=== PATIENT | female | born 1960 | race Caucasian/White ===

== ENCOUNTER 2017-03-25 12:50 | Outpatient (CLI) ==
[2014-02-09 15:08] VITALS: BMI 21.9
--- NOTE | 2017-03-25 13:59 | DEXA ---
EXAM: Bone density HISTORY: Osteoporosis post menopause with calcium supplementation and previously taking Fosamax COMPARISON: DEXA at 06/22/2014 TECHNIQUE: Digital images of the thoracolumbar spine and hips were provided and calculation of bone density was obtained. FINDINGS: Digital images demonstrate no compression deformities of the thoracolumbar spine. DEXA scan of the lumbar spine is of good quality. The total BMD equals 0.92 grams per square centimeter. (Prior 0.986) T-score is - 1.7 and Z-score of - 0.5. DEXA of the hips was performed and of good quality. Total bone marrow density of 0.708 grams per square centimeter. (Prior 0.708) T score is - 2.4 and Z-score of - 1.5. IMPRESSION: Bone density of the hip and lumbar spine demonstrate osteopenia of the lumbar spine and hips by WHO criteria. Overall bone density has decreased in the lumbar spine and remains unchanged of the hips. FRAX calculation tool demonstrates 10-year major osteoporotic fracture risk of 11.3% and hip fracture risk of 2.8% T score greater than -1 is normal T score -1 to -2.5 is osteopenia T score less than - 2.5 is osteoporosis
--- NOTE | 2017-03-26 09:14 | MAMMO ---
EXAM: Bilateral digital screening mammogram (2-D and 3-D) History: Screening Comparison: Bilateral mammogram 09/21/2015 Findings: MLO and CC views of bilateral breasts demonstrate scattered fibroglandular breast parenchy ma. CAD was reviewed by the radiologist. Tomosynthesis was performed. There are no dominant masses , no suspicious microcalcifications and no architectural distortions Impression: Stable negative mammogram. Recommend followup routine screening mammography in 1 year. BIRADS 1
== END 2017-03-25 12:51 | disposition home or self-care (01) ==
LOC: RAD 12:50
PROVIDERS: ATTEND Internal Medicine
DX: Z12.31 Encounter for screening mammogram for malignant neoplasm of breast (principal); M81.0 Age-related osteoporosis without current pathological fracture
CPT/HCPCS: 77067

== ENCOUNTER 2022-11-19 18:21 | Observation (INO) ==
[2022-11-19 18:54] LABS: BASOPHILS # (AUTO) 0.1 K/uL (0-0.2); EOSINOPHILS # (AUTO) 0.2 K/ul (0.0-0.7); EOSINOPHILS % (AUTO) 4.7 % (0.0-7.0); HEMATOCRIT 40.6 % (37.0-47.0); HEMOGLOBIN 13.9 g/dl (12.0-16.0); IMMATURE GRANULOCYTE % (AUTO) 0.2 % (0.0-5.0); LYMPHOCYTES # (AUTO) 1.8 K/uL (0.60-3.4); LYMPHOCYTES % (AUTO) 35.4 (10.0-50.0); MEAN CORPUSCULAR HEMOGLOBIN 32.3 pg (27.0-31.0); MEAN CORPUSCULAR HGB CONC 34.2 (31.8-35.4); MEAN CORPUSCULAR VOLUME 94.4 fl (81.0-99.0); MONOCYTES # (AUTO) 0.4 K/uL (0.4-2.0); MONOCYTES % (AUTO) 7.2 (0-10); NEUTROPHILS # (AUTO) 2.7 K/ul (2.0-6.9); NEUTROPHILS % (AUTO) 51.5 % (42.2-75.2); PLATELET COUNT 246 10^3/uL (140-440); RDW COEFFICIENT OF VARIATION 11.9 % (11.6-14.8); WHITE BLOOD COUNT 5.14 K/ul (4.6-10.2)
--- NOTE | 2022-11-19 18:57 | DI ---
EXAM: FRONTAL VIEW OF THE CHEST. HISTORY: Chest pain. COMPARISON: None. FINDINGS: Normal heart size. Hyperexpansion of the lungs. No acute airspace consolidation. Prominent skin fold versus trace right apical pneumothorax. No pleural effusion. Mild dextroconvex thoracic curvature. IMPRESSION: Prominent skin fold versus trace right apical pneumothorax. Recommend short interval follow-up chest radiograph. Hyperexpansion of the lungs suggests obstructive pulmonary disease.
[2022-11-19 19:05] LABS: ALANINE AMINOTRANSFERASE 18.2 U/L (0-35); ALBUMIN 4.38 g/dL (3.5-5.0); ALKALINE PHOSPHATASE 72.8 U/L (53-141); ASPARTATE AMINO TRANSFERASE 25.6 U/L (14-36); BILIRUBIN,TOTAL 0.28 mg/dL (0.2-1.3); BLOOD UREA NITROGEN 10.7 mg/dL (7-17); CALCIUM 9.25 mg/dL (8.4-10.2); CARBON DIOXIDE 27.1 mmol/L (22-30.0); CHLORIDE 105.7 mmol/L (98-107); CREATINE KINASE 64.1 U/L (30-135); CREATININE 0.65 mg/dL (0.60-1.30); GLUCOSE 122.6 mg/dL (74-106); POTASSIUM 3.89 mmol/L (3.5-5.1); SODIUM 139.7 mmol/L (134.5-145); TOTAL PROTEIN 7.23 g/dL (6.3-8.2)
[2022-11-19 19:17] LABS: TROPONIN I < 0.012 ng/ml (0.0000-0.120)
--- NOTE | 2022-11-19 19:32 | ED.PDOC ---
General ED Provider: Dr. MADELINE VASQUES Chief Complaint: Chest Pain Stated Complaint: Patient is a 62-year-old female who comes into the ER by private vehicle with complaints of intermittent chest palpitations and chest pain. She described the chest pain as heaviness in her chest that has been off-and-on for 4 days. She states that she gets to feeling hot with associated shortness of breath and feels drained and tired. She has a history of hyperlipidemia but she quit taking her cholesterol medicine before the pandemic and has not followed up with her PCP since that time. Time Seen by Provider: 11/19/22 18:33 Mode of Arrival: Walk-In Information Source: Patient Exam Limitations: No limitations Primary Care Provider: CHARLOTTE BEAUCHAMP MD Nursing and Triage Documentation Reviewed and Agree: Yes Cardiovascular Complaint Exam Palpitations Complaint/Exam Onset/Duration: 4 days ago Symptoms Are: Resolved Timing: Intermittent Initial Severity: Severe Current Severity: Mild Character: Reports Fast, Irregular and Pounding Aggravating: Reports None (But also states that she has been going through a lot of anxiety since her son got into a wreck) Alleviating: Reports None (Spontaneous resolution) Associated Signs and Symptoms: Reports Lightheadedness, Chest pain (heaviness), Shortness of breath and Diaphoresis Related Surgical History: Reports None Cardiac Risk Factors: Reports Elevated lipids and Family history Pulmonary Embolism Risk Factors: Reports None Atrial Fibrillation Risk Factors: Reports None Thyroid Exam: Normal Differential Diagnoses: CAD, Myocarditis, Pericarditis, Paroxysmal SVT, VT and Other (Atrial Fibrillation ) Quality Indicators for AMI: EKG in 10min. Quality Indicators for Cardiac Chest Pain: EKG in 10min. Quality Indicator For Non-Traumatic Chest Pain/Syncope: EKG Performed Review of Systems Review Of Systems Constitutional: Reports No symptoms Respiratory: Reports Shortness of Breath Cardiac: Reports Chest pain and Palpitations Neurological: Reports Anxiety All Other Systems: Reviewed and Negative [facility] Family History FATHER Pacemaker Diabetes CAD (coronary artery disease) Myocardial infarct Mother Hyperthyroidism Hypothyroidism BROTHER No pertinent past medical history SISTER No pertinent past medical history Social History (Updated 11/20/22 @ 00:49 by FRANCY VERA RN) Smoking and tobacco status: Never smoker Alcohol intake: never Substance use type: does not use Marital status: M Lives independently: Yes History of recent travel: No Surgical History History of appendectomy Z90.49 - Acquired absence of other specified parts of digestive tract (ICD- 10) Hx of cholecystectomy Z90.49 - Acquired absence of other specified parts of digestive tract (ICD- 10) Hx of tonsillectomy Z90.89 - Acquired absence of other organs (ICD-10) Hx of tubal ligation Z98.51 - Tubal ligation status (ICD-10) Physical Exam Physical Exam Appearance: Reports Ill-appearing Ill-appearing: Mild Pain Distress: None Eyes: Reports PAULINO, EOMI and Conjunctiva clear ENT: Reports Nose normal and Oropharynx normal Neck: Supple Respiratory: Reports Airway patent, Breath sounds clear and Breath sounds equal Cardiovascular: Reports RRR, Pulses normal, No rub and No murmur GI/: Reports Soft and Nontender Musculoskeletal: Reports Normal strength, ROM intact and No edema Skin: Reports Warm, Dry and Normal color Neurological: Reports Motor intact, Alert and Oriented Psychiatric: Reports Anxious Interpretation EKG Interpretation EKG Interpretation By: ED Physician Time of EKG #1: 18:56 Rate: Normal Rhythm: Sinus (With marked sinus arrhythmia) Ectopy: PACs [place]: NL ST Segment: Normal Interpretation: Possible old septal infarct noted with Q waves in V1 and V2. No acute ST e EKG Interpretation By: ED Physician Time of EKG #2: 18:56 Rate: Tachy Rhythm: Sinus Ectopy: PACs [place]: NL EKG Interpretation: Old septal infarct appreciated with V1 V2 Q waves. No acute ST elevation n Radiology Interpretation Radiology Interpretation By: Radiologist Radiology Results: No acute changes (Prominent skin fold versus trace right apical pneumothorax. Recommend short interval follow-up chest radiograph.) Re-Evaluation Re-Evaluation Time of Re-Evaluation: 21:20 Status: Improved Vital Signs Stable: Yes Pain Level: No pain Physician Notification Case Discussed Physician Notified: Dr Beauchamp Time of Notification: 21:15 (ask Hospitalist to admit and consult him if needed. But get an Echo for the morning. ) Physician Notified: Jose Shultz Time of Notification: 21:19 (accepted to admit for observation ) Critical Care Note Critical Care Note Total Critical Care Time (mins): 0 Comments: Patient's pain has subsided. Palpitations become very infrequent and extremely short. Patient is agreeable to admission for observation to the hospital to monitor her heart rate and follow cardiac enzymes. Course Course 11/19/22 17:30 11/19/22 17:30 Orders, Labs, Meds: Lab Review 11/19/22 11/19/22 11/19/22 17:30 18:33 21:37 WBC 5.14 RBC 4.30 Hgb 13.9 Hct 40.6 MCV 94.4 MCH 32.3 H MCHC 34.2 RDW Coeff of Jesús 11.9 Plt Count 246 Immature Gran % (Auto) 0.2 Neut % (Auto) 51.5 Lymph % (Auto) 35.4 [place] % (Auto) 7.2 Eos % (Auto) 4.7 Baso % (Auto) 1.0 Neut # (Auto) 2.7 Lymph # (Auto) 1.8 [place] # (Auto) 0.4 Eos # (Auto) 0.2 Baso # (Auto) 0.1 Immature Gran # (Auto) 0.0 Sodium 139.7 Potassium 3.89 Chloride 105.7 Carbon Dioxide 27.1 Anion Gap 10.79 BUN 10.7 Creatinine 0.65 Estimated GFR (MDRD) 93.00 BUN/Creatinine Ratio 16.46 Glucose 122.6 H Calcium 9.25 Magnesium 2.10 Total Bilirubin 0.28 AST 25.6 ALT 18.2 Alkaline Phosphatase 72.8 Total Creatine Kinase 64.1 Troponin I < 0.012 < 0.012 Total Protein 7.23 Albumin 4.38 Globulin 2.85 Albumin/Globulin Ratio 1.53 TSH 4.070 Free T4 1.08 D-Dimer 189.54 Orders Category Date Time Status ADMIT OBSERVATION [PLACE PATIENT OBSERVATION] .TO ADMISSION 11/19/22 21:16 Active MEDSURG (MONITORED BED) ECHOCARDIOGRAM 2D-M MODE Routine CARDIO 11/19/22 21:20 Ordered EKG-(ED ONLY) Stat CARDIO 11/19/22 18:33 Completed EKG-(ED ONLY) Stat CARDIO 11/19/22 19:22 Completed EKG-(IP & OP ONLY) DAILY CARDIO 11/20/22 06:00 Ordered STRESS TEST Routine CARDIO 11/19/22 21:28 Ordered ACTIVITY .Up ad Regine CARE 11/19/22 21:20 Active INTAKE & OUTPUT Q8HR CARE 11/19/22 21:20 Active NPO REMINDER: LAB TEST ONCE CARE 11/19/22 21:22 Active TELEMETRY MONITORING TELE CARE 11/19/22 21:18 Active VITAL SIGNS Q4HR CARE 11/19/22 21:20 Active CARDIAC DIET DIETARY 11/20/22 Breakfast Ordered ED IV/MEDIPORT/POWERPORT .ONCE EMERGENCY 11/19/22 18:33 Active CBC W/ AUTO DIFF DAILY@0600 LAB 11/20/22 06:00 Ordered CBC W/ AUTO DIFF DAILY@0600 LAB 11/21/22 06:00 Ordered CBC W/ AUTO DIFF Stat LAB 11/19/22 17:30 Completed COMPREHENSIVE METABOLIC PANEL DAILY@0600 LAB 11/20/22 06:00 Ordered COMPREHENSIVE METABOLIC PANEL DAILY@0600 LAB 11/21/22 06:00 Ordered COMPREHENSIVE METABOLIC PANEL Stat LAB 11/19/22 17:30 Completed CREATINE KINASE Stat LAB 11/19/22 17:30 Completed D-DIMER Stat LAB 11/19/22 18:33 Completed FREE T4 (FREE THYROXINE) Stat LAB 11/19/22 18:33 Completed HEMOGLOBIN A1C Routine LAB 11/20/22 06:00 Ordered LIPID PANEL Routine LAB 11/20/22 06:00 Ordered MAGNESIUM Stat LAB 11/19/22 18:33 Completed TROPONIN I Stat LAB 11/19/22 17:30 Completed TROPONIN I Timed LAB 11/19/22 21:37 Completed TROPONIN I Timed LAB 11/20/22 05:30 Ordered TSH [THYROID STIMULATING HORMONE] Stat LAB 11/19/22 18:33 Completed 0.9 % Sodium Chloride [Saline Flush] Meds 11/19/22 18:33 Active 1 syr IVF PRN PRN Acetaminophen [Tylenol] Meds 11/19/22 21:20 Active 650 mg PO Q4H PRN CHEST, 1V AP ONLY Stat RADS 11/19/22 18:33 Completed Medications Generic Name Dose Route Start Last Admin Trade Name Freq PRN Reason Stop Dose Admin Acetaminophen 650 mg 11/19/22 21:20 Acetaminophen 325 Mg Tablet PO Q4H PRN Mild Pain Sodium Chloride 1 syr 11/19/22 18:33 0.9% Sodium Chloride 10 Ml Disp.Syrin IVF PRN PRN To flush IV Vital Signs: Temp Pulse Resp BP Pulse Ox 11/19/22 18:26 97.4 F L 66 20 128/57 L 100 SHEILA Risk Score SHEILA Risk Score: Risk Score Odds of by 30D 0 0.1 (0.1-0.2) 1 0.3 (0.2-0.3) 2 0.4 (0.3-0.5) 3 0.7 (0.6-0.9) 4 1.2 (1.0-1.5) 5 2.2 (1.9-2.6) 6 3.0 (2.5-3.6) 7 4.8 (3.8-6.1) Discharge Plan Discharge Patient Disposition: PLACED OBSERVATION Discharge Problem: Chest pain, Palpitation Did you review [place] [employer]AN for ALL controlled substances?: Not Applicable ED Provider: MADELINE VASQUES Condition: Stable Physician Progress Note: []
[2022-11-19] MEDS ORDERED: TYLENOL PO PRN (21:20)
[2022-11-20 00:42] VITALS: BMI 20.5
[2022-11-20 05:27] LABS: BASOPHILS # (AUTO) 0.1 K/uL (0-0.2); BASOPHILS % (AUTO) 1.4 % (0.0-3.0); EOSINOPHILS # (AUTO) 0.2 K/ul (0.0-0.7); EOSINOPHILS % (AUTO) 4.3 % (0.0-7.0); HEMATOCRIT 41.7 % (37.0-47.0); HEMOGLOBIN 13.9 g/dl (12.0-16.0); LYMPHOCYTES # (AUTO) 1.5 K/uL (0.60-3.4); LYMPHOCYTES % (AUTO) 34.5 (10.0-50.0); MEAN CORPUSCULAR HGB CONC 33.3 (31.8-35.4); MEAN CORPUSCULAR VOLUME 95.9 fl (81.0-99.0); MONOCYTES # (AUTO) 0.3 K/uL (0.4-2.0); MONOCYTES % (AUTO) 6.2 (0-10); NEUTROPHILS # (AUTO) 2.4 K/ul (2.0-6.9); NEUTROPHILS % (AUTO) 53.6 % (42.2-75.2); PLATELET COUNT 229 10^3/uL (140-440); RDW COEFFICIENT OF VARIATION 11.7 % (11.6-14.8); RED BLOOD COUNT 4.35 10^6/ul (4.20-5.40); WHITE BLOOD COUNT 4.38 K/ul (4.6-10.2)
[2022-11-20 05:46] LABS: ALANINE AMINOTRANSFERASE 18.1 U/L (0-35); ALBUMIN 4.13 g/dL (3.5-5.0); ALKALINE PHOSPHATASE 65.9 U/L (53-141); ASPARTATE AMINO TRANSFERASE 25.3 U/L (14-36); BILIRUBIN,TOTAL 0.55 mg/dL (0.2-1.3); BLOOD UREA NITROGEN 9.2 mg/dL (7-17); CALCIUM 9.14 mg/dL (8.4-10.2); CARBON DIOXIDE 33.4 mmol/L (22-30.0); CHLORIDE 103.9 mmol/L (98-107); CHOLESTEROL 219.1 mg/dL (0-200); CREATININE 0.6 mg/dL (0.60-1.30); GLUCOSE 100.6 mg/dL (74-106); HDL CHOLESTEROL 80.2 mg/dL (35-80); POTASSIUM 4.62 mmol/L (3.5-5.1); SODIUM 139.6 mmol/L (134.5-145); TOTAL PROTEIN 6.8 g/dL (6.3-8.2)
--- NOTE | 2022-11-20 09:42 | DI ---
EXAM: CHEST RADIOGRAPH TECHNIQUE: Two views. Frontal and lateral. HISTORY: Clinical concern regarding a right pneumothorax. COMPARISON: Chest x-ray dated 11/19/2022 which demonstrated a possible small right apical pneumothora x. FINDINGS: The lungs are clear. The heart size is normal. There is no pleural effusion. There is no pneumothorax. Previously visualized linear density at the right apex was likely due to a skin fold. IMPRESSION: 1. Normal chest radiographs. 2. No pneumothorax.
--- NOTE | 2022-11-20 09:46 | PCM.SS ---
Provider Provider: STEPH[facility] MENDEZ PA-C, [facility] Date Admission Date: 11/19/22 Discharge Date Discharge Date: 11/20/22 Primary Care Physician Primary Care Physician: CHARLOTTE WEBB MD Chief Complaint Reason For Visit: CHEST PAIN,PALPITATIONS History of Present Illness History of Present Illness: Admitted 11/19/22 21:53, this 62 year old /WHITE/F with pmhx of hyperlipidemia who presented to ER for chest discomfort and palpitations for last few days. She states it started while she was cleaning a shower. But she's also had episodes while at rest. They come and go. She feels palpitations like her "heart is beating out of her chest." She has associated SOB during these episodes. Denies n/v, diaphoresis. No hx of cardiac disease. In ER she had a normal work up except showing some transient tachycardia on telemetry and ekg. Her CXR also mentioned possible skin fold vs trace pneumothorax. Pt was 100% on RA. Repeat CXR this morning normal. Trops negative. EKG this morning showing sinus shelia. Pt does not smoke. Her father had MIs in his 70s-80s. She denies chest discomfort or palpitations on evaluation this morning. [facility] Surgical History History of appendectomy Z90.49 - Acquired absence of other specified parts of digestive tract (ICD- 10) Hx of cholecystectomy Z90.49 - Acquired absence of other specified parts of digestive tract (ICD- 10) Hx of tonsillectomy Z90.89 - Acquired absence of other organs (ICD-10) Hx of tubal ligation Z98.51 - Tubal ligation status (ICD-10) Family History FATHER Pacemaker Diabetes CAD (coronary artery disease) Myocardial infarct Mother Hyperthyroidism Hypothyroidism BROTHER No pertinent past medical history SISTER No pertinent past medical history Social History Smoking and tobacco status: Never smoker Alcohol intake: never Substance use type: does not use Marital status: M Lives independently: Yes History of recent travel: No Medications Mecications: Medications at Discharge (Home Meds & RX) 1 [No Reported Medications] 11/19/22 Allergies Allergies Allergy/AdvReac Type Severity Reaction Status Date / Time sulfamethoxazole AdvReac Rash Verified 11/19/22 18:32 [From Bactrim] trimethoprim [From Bactrim] AdvReac Rash Verified 11/19/22 18:32 Review of Systems Constitutional: Denies Fever, Weakness or Sweats Head: Denies Normocephalic or Atraumatic Eyes: Denies Vision Changes Throat: Denies Sore Throat or Difficulty Swallowing Cardiovascular: Reports Chest pain and Irregular Heartbeat; Denies Edema Respiratory: Reports Shortness of air; Denies Cough Gastrointestinal: Denies Nausea, Vomiting, Diarrhea or Abdominal pain Genitourinary: Denies Dysuria or Frequency Dermatologic: Denies Rashes Neurological: Denies Headache, Dizziness, Syncope or Seizure Physical Examination Appearance: Positive Well-appearing, Well-nourished, No Apparent Distress and Alert and Oriented x3 Head: Positive Normocephalic and Atraumatic Neck: Positive Supple Heart: Positive RRR and No Murmurs Respiratory: Positive Airway patent and Breath Sounds Clear, Bilaterally; Negative Crackles, Rhonchi, Wheezes or Retractions GI/: Positive Soft, Nontender, Bowel sounds normal and No Distention Extremities: Negative Edema Neurological: Positive Cranial nerves intact, Alert and Oriented Psychiatric: Positive Normal Judgement, Normal Insight, Affect Appropriate and Mood Appropriate Vital Signs (Last 4 Hours) Vital Signs Last 4 Hours: Vital Signs: Last 4 Hours 11/20/22 07:00 11/20/22 08:00 Pulse Rate [Right Radial] 60 Respiratory Rate 14 Oxygen Delivery Method Room Air Telemetry Type Remote Telemetry Telemetry Monitoring Continues Telemetry Heart Rate 81 EKG OH Interval 0.1 L EKG QRS Interval 0.04 L Telemetry Strip Reading SR Labs This Visit Labs This Visit: Labs This Visit 11/19/22 11/19/22 11/19/22 17:30 18:33 21:37 WBC 5.14 RBC 4.30 Hgb 13.9 Hct 40.6 MCV 94.4 MCH 32.3 H MCHC 34.2 RDW Coeff of Jesús 11.9 Plt Count 246 Immature Gran % (Auto) 0.2 Neut % (Auto) 51.5 Lymph % (Auto) 35.4 [place] % (Auto) 7.2 Eos % (Auto) 4.7 Baso % (Auto) 1.0 Neut # (Auto) 2.7 Lymph # (Auto) 1.8 [place] # (Auto) 0.4 Eos # (Auto) 0.2 Baso # (Auto) 0.1 Immature Gran # (Auto) 0.0 Sodium 139.7 Potassium 3.89 Chloride 105.7 Carbon Dioxide 27.1 Anion Gap 10.79 BUN 10.7 Creatinine 0.65 Estimated GFR (MDRD) 93.00 BUN/Creatinine Ratio 16.46 Glucose 122.6 H Hemoglobin A1c Calcium 9.25 Magnesium 2.10 Total Bilirubin 0.28 AST 25.6 ALT 18.2 Alkaline Phosphatase 72.8 Total Creatine Kinase 64.1 Troponin I < 0.012 < 0.012 Total Protein 7.23 Albumin 4.38 Globulin 2.85 Albumin/Globulin Ratio 1.53 Triglycerides Cholesterol LDL Cholesterol, Calc VLDL Cholesterol HDL Cholesterol Cholesterol/HDL Ratio TSH 4.070 Free T4 1.08 D-Dimer 189.54 11/20/22 11/20/22 05:05 05:10 WBC 4.38 L RBC 4.35 Hgb 13.9 Hct 41.7 MCV 95.9 MCH 32.0 H MCHC 33.3 RDW Coeff of Jesús 11.7 Plt Count 229 Immature Gran % (Auto) 0.0 Neut % (Auto) 53.6 Lymph % (Auto) 34.5 [place] % (Auto) 6.2 Eos % (Auto) 4.3 Baso % (Auto) 1.4 Neut # (Auto) 2.4 Lymph # (Auto) 1.5 [place] # (Auto) 0.3 L Eos # (Auto) 0.2 Baso # (Auto) 0.1 Immature Gran # (Auto) 0.0 Sodium 139.6 Potassium 4.62 Chloride 103.9 Carbon Dioxide 33.4 H Anion Gap 6.92 BUN 9.2 Creatinine 0.60 Estimated GFR (MDRD) 102.00 BUN/Creatinine Ratio 15.33 Glucose 100.6 Hemoglobin A1c 5.18 Calcium 9.14 Magnesium Total Bilirubin 0.55 AST 25.3 ALT 18.1 Alkaline Phosphatase 65.9 Total Creatine Kinase Troponin I < 0.012 Total Protein 6.80 Albumin 4.13 Globulin 2.67 Albumin/Globulin Ratio 1.54 Triglycerides 75.0 Cholesterol 219.1 H LDL Cholesterol, Calc 124 VLDL Cholesterol 15 HDL Cholesterol 80.2 H Cholesterol/HDL Ratio 2.7 L TSH Free T4 D-Dimer Imaging Imaging: EXAM: FRONTAL VIEW OF THE CHEST. HISTORY: Chest pain. COMPARISON: None. FINDINGS: Normal heart size. Hyperexpansion of the lungs. No acute airspace consolidation. Prominent skin fold versus trace right apical pneumothorax. No pleural effusion. Mild dextroconvex thoracic curvature. IMPRESSION: Prominent skin fold versus trace right apical pneumothorax. Recommend short interval follow-up chest radiograph. Hyperexpansion of the lungs suggests obstructive pulmonary disease. EXAM: CHEST RADIOGRAPH TECHNIQUE: Two views. Frontal and lateral. HISTORY: Clinical concern regarding a right pneumothorax. COMPARISON: Chest x-ray dated 11/19/2022 which demonstrated a possible small right apical pneumothorax. FINDINGS: The lungs are clear. The heart size is normal. There is no pleural effusion. There is no pneumothorax. Previously visualized linear density at the right apex was likely due to a skin fold. IMPRESSION: 1. Normal chest radiographs. 2. No pneumothorax. Echo and stress echo final reports pending Review Review Statement: I have independently reviewed and interpreted the labs/EKGs/imaging that were ordered by the ER provider. I have reviewed all outside records that are available currently in our EMR including imaging/notes/labs from previous visits. Plan Additional Plannin. Chest discomfort with palpitations - EKGs and tele showing short runs of tachycardia that spontaneously return to NSR. Echo and stress echo ordered. Trop neg. Electrolytes normal. 2. Hyperlipidemia - Hasn't taken anything in a few years. Total cholesterol very mildly elevated, but HDL elevated. Case discussed with ED Physician, Dr. Israel. Advanced Care Planning: FULL CODE 3 minutes spent discussing advance care planning. Admit to: Obs Discussed Plan of Care with Dr. Brayan Webb. Patient underwent echo and stress echo on treadmill with Dr. Yasmani Webb. He reports that her EF is 51%. No valvular issues. Systolic and diastolic function is normal. During her stress echo she did go into paroxysmal atrial tachycardia but then returned to normal sinus rhythm at rest. He recommends a 48-hour Holter so he can review it next week and send to EP. She will follow-up with him on Friday of next week at 11 AM. He recommends starting her on Coreg lowest dose. Advised her to monitor her blood pressure as she is chronically low anyway. She will monitor it at home and call Dr. Webb's office if she cannot tolerate it. Discharge diagnosis: 1. Paroxysmal atrial tachycardia, exercise induced 2. Hyperlipidemia, chronic, stable Review With Patient Reviewed with Patient and Family: Patient and family have been counseled on condition and care plan and have no immediate questions. I have personally discussed and reviewed the patient's visit/current labs/imaging/decision making with Dr. Brayan Webb, my supervising attending. Total number of minutes spent with patient [85] min. More than 50% of the time spent with this patient was devoted to counseling and coordination of care. Time of Admission:11/19/22 21:53 Time of Discharge: 11/20/22 16:00 Discharge Plan Discharge Discharge Orders: Discharge Patient (ONCE); Ordered 11/20/22 Ordered By: STEPHANY MENDEZ Activity Restrictions/Additional Instructions: Dx: Atrial tachycardia Diet: Heart healthy Activity: As tolerated F/u with Dr. Webb 11/27 at 11:00 AM Patient Disposition: HOME SELF-CARE Prescriptions: New carvedilol [Coreg] 3.125 mg tablet 3.125 mg PO BID Qty: 30 0RF Rx Instructions: must administer with a meal/food, monitor BP Did you review [place] [employer]ER for ALL controlled substances?: Not Applicable Discussed opioids are addictive and Narcan is available by prescription or from pharmacy.: No Condition: Stable
[2022-11-20 14:37] VITALS: BP 99/56; PULSE 64; RESP 15; TEMP 96.3
--- NOTE | 2022-11-20 15:47 | STRESSECHO ---
Date of Test: 11/20/2022 Ordering Physician: DR. CHARLOTTE WEBB Occupation:HOUSEKEEPING Reason for Exam: SOB, CHEST PAIN Smoking History: NONE Height: 62" Weight: 108 LBS Current Medications: NO PRESCRIPTION MEDICATIONS Resting EKG: SINUS RHYTHM/ NO ACUTE CHANGES/ PAC Target Heart Rate: 135/159 S-T SEGMENT STAGE MPH/GRADE HEART RATE BPM BLOOD PRESSURE MMHG RHYTHM +/- ELEVATION DEPRESSION SYMPTOMS AT REST 59 BPM 102/58 MMHG SR X NONE 1 1.7/10% 134 BPM 122/60 MMHG PAT X NONE 2 2.5/12% 3 3.4/14% 4 4.2/16% 5 5.0/18% Immediately After PATS X TARGET HR MET Minutes Post Exercise 3:00 90 BPM 118/60 MMHG SR X NONE Minutes Post Exercise 6:00 65 BPM 110/58 MMHG SR X NONE DURATION OF EXERCISE: 4:17 MAXIMUM HEART RATE REACHED: 150 BPM REASON FOR TERMINATION: TARGET HR MET 96% OXYGEN SATURATION WITH EXERCISE METS 7.0 INTERPRETATION: 1. NO EVIDENCE OF ISCHEMIA BY ST-T WAVE 2. NO CHEST PAIN OR DISCOMFORT 3. PAT NOTED AFTER COUPLE OF MINUTES OF EXERCISE-PAROXYSMAL IN THE BEGINNING AND LATER ON CONSTANT 4. POST EXERCISE 2 MINUTES LATER SINUS RHYTHM WITH PAC'S AND PAT'S 5. BLOOD PRESSURE RESPONSE --NORMAL 6. MILDLY HYPOKINETIC SEPTUM AT REST --LEFT VENTRICLE CONTRACTILITY NORMAL POST EXERCISE MTDD
--- NOTE | 2022-11-23 10:02 | ECHOSTRESS ---
Date of Exam: 11/20/2022 Ordering Physician: DR. CHARLOTTE WEBB Reason for Echo: CHEST PAIN, SOB, HYPERLIPIDEMIA, STRESS TEST--NO ISCHEMIA M-Mode Normal Adult Results LV Dimensions Normal Adult Results AoV Opening excursions >1.6 LVEDD-base- 3.5-5.8 Ao root dimensions 2.0-3.7 LVESD-base- 3.1-4.6 L. Atrium dimensions 1.9-3.8 Post. Wall thickness 0.8-1.1 IV septum (thickness) 0.7-1.2 Post. Wall excursion 0.72-1.3 Septal motion Systolic motion R. Ventricular cavity 1.5-2.0 LVEF 60% Paradoxical septal wall motion 2-D: MILDLY HYPOKINETIC SEPTAL WALL AT REST AND WITH IMPROVED LEFT VENTRICLE CONTRACTILITY AFTER EXERCISE M-MODE: MV: AV: TV: PV: CHAMBER SIZE: WALL MOTION: MILDLY HYPOKINETIC SEPTAL WALL AT REST AND WITH IMPROVED LEFT VENTRICLE CONTRACTILITY AFTER EXERCISE PERICARDIUM: INTERPRETATION: 1. MILDLY HYPOKINETIC SEPTAL WALL AT REST AND WITH IMPROVED LEFT VENTRICLE CONTRACTILITY AFTER EXERCISE MTDD
--- NOTE | 2022-11-23 10:10 | ECHO2D ---
Date of Exam: 11/22/2022 Ordering Physician: DR. CHARLOTTE WEBB Room #: [id number] Reason for Echo: SOB, CAD, MYOCARDITIS, CHEST PAIN, PALPITATIONS M-Mode Normal Adult Results LV Dimensions Normal Adult Results AoV Opening excursions >1.6 >1.6 LVEDD-base- 3.5-5.8 4.4 Ao root dimensions 2.0-3.7 3.3 LVESD-base- 3.1-4.6 L. Atrium dimensions 1.9-3.8 3.1 Post. Wall thickness 0.8-1.1 1.0 IV septum (thickness) 0.7-1.2 0.9 Post. Wall excursion 0.72-1.3 NORMAL Septal motion 0.8 Systolic motion R. Ventricular cavity 1.5-2.0 NORMAL LVEF 60% 49% Paradoxical septal wall motion NORMAL 2-D : 2-D M Mode Echocardiogram was performed using apical four chamber and left parasternal long and short axis views. Mitral, tricuspid and aortic valves appear to be normal. Contractility of the left ventricle seems to be normal, so is the cavity size. Left atrial cavity size and aortic root appear to be normal. MAYBE MILDLY HYPOKINETIC SEPTAL WALL. There is no pericardial effusion. There is no thrombus noted in the left ventricle or left atrial cavity. M-MODE: MV: NORMAL AV: NORMAL TV: NORMAL PV: CHAMBER SIZE: NORMAL WALL MOTION: MILDLY HYPOKINETIC SEPTAL WALL PERICARDIUM: NORMAL INTERPRETATION: 1. MILDLY HYPOKINETIC SEPTAL WALL EJECTION FRACTION 49% 2. NORMAL VALVES 3. NORMAL LEFT VENTRICLE SIZE AND ALL CHAMBERS NORMAL SIZE MTDD
--- NOTE | 2022-11-25 07:43 | HOLTER ---
PATIENT INFORMATION AND COMMENTS Attending Physician: DR. CHARLOTTE WEBB Indications: PAROXYSMAL ATRIAL TACHYCARDIA, PALPITATIONS __ Patient Medications: COREG __ Pre-procedure Summary: Protocol: Standard Heart Rate Started: 11/20/2022 Minimum: 50 BPM Weight: 108 LBS Ended: 11/22/2022 Maximum: 150 BPM Height: 61" Duration: 48 HRS Average: 90 BPM _ INTERPRETATIONS/OBSERVATIONS: 1. BASIC RHYTHM: SINUS RATE 50 BPM TO 150 BPM, AVERAGE 90 BPM 2. PAC'S FREQUENT WITH INFREQUENT PVC'S 3. LONG RUNS OF SVT/ PAT'S NOTED--FREQUENT 4. NO ST-T WAVE CHANGES OF ANY SIGNIFICANCE FROM BASELINE 5. ACTIVITY LOG NOT AVAILABLE MTDD
== END 2022-11-20 16:13 | disposition home or self-care (01) ==
LOC: MEDSURG B 18:21 → ED 18:21 → MEDSURG B 23:26
PROVIDERS: ADMIT Hospitalist; ATTEND Physician Assistant
DX: E78.5 Hyperlipidemia, unspecified; R07.9 Chest pain, unspecified; R00.2 Palpitations; I47.9 Paroxysmal tachycardia, unspecified; R06.02 Shortness of breath; R53.83 Other fatigue